=== PATIENT | female | born 1955 ===

== ENCOUNTER 2020-02-26 | Outpatient (CLI) | payer OTHER | END 2020-02-26 09:40 | disposition home or self-care (01) | LOC: PPH VACUNA → PMR | PROVIDERS: ATTEND Emergency Medicine Pediatric Emergency Medicine | DX: Z23 Encounter for immunization (principal) ==

== ENCOUNTER 2020-03-18 08:58 | Outpatient (CLI) | payer OTHER | END 2020-03-18 15:00 | disposition home or self-care (01) | LOC: PPH VACUNA 08:58 | PROVIDERS: ATTEND Emergency Medicine Pediatric Emergency Medicine | DX: Z23 Encounter for immunization (principal) ==